=== PATIENT | female | born 1995 | race African-American/Black ===

== ENCOUNTER 2024-04-10 17:39 | Emergency (ER) | payer SELFPAY ==
[~2024-04-10] VITALS: Ht 157.5 cm; Wt 65.7 kg
[2024-04-10 17:47] VITALS: BP 113/73; O2SAT 100
[2024-04-10] MEDS: ACETAMINOPHEN 325MG TABLET PO ONE (18:05)
[2024-04-10] MEDS ORDERED: TOPUD PO (18:44)
[2024-04-10 19:23] VITALS: PULSE 81; RESP 16; TEMP 36.78072; O2SAT 100
== END 2024-04-10 19:46 | disposition home or self-care (01) ==
LOC: ER 17:39
DX: S80.02XA Contusion of left knee, initial encounter (principal); M54.2 Cervicalgia; M79.10 Myalgia, unspecified site; Z88.1 Allergy status to other antibiotic agents; V49.49XA Driver injured in collision with other motor vehicles in traffic accident, initial encounter; Y93.89 Activity, other specified; Y92.89 Other specified places as the place of occurrence of the external cause; Y99.8 Other external cause status
CPT/HCPCS: 73120; 73560; 99284